=== PATIENT | female | born 1965 | race Caucasian/White ===

== ENCOUNTER 2017-05-25 14:30 | Outpatient (CLI) | payer BC | END 2017-05-25 14:31 | disposition home or self-care (01) | LOC: BICRAD 14:30 | PROVIDERS: ATTEND Internal Medicine | DX: Z01.818 Encounter for other preprocedural examination (principal) | CPT/HCPCS: 71046 ==

== ENCOUNTER 2017-07-21 13:43 | Outpatient (CLI) | payer BC | END 2017-07-21 13:44 | disposition home or self-care (01) | LOC: BICMAMMO 13:43 | PROVIDERS: ATTEND Internal Medicine | DX: Z12.31 Encounter for screening mammogram for malignant neoplasm of breast (principal) | CPT/HCPCS: 77063; 77067 ==

== ENCOUNTER 2018-04-27 06:59 | Outpatient (CLI) | payer BC ==
--- NOTE | 2018-04-27 08:06 | ULT ---
RIGHT UPPER QUADRANT ULTRASOUND: Date: 04/27/18 HISTORY: Elevated LFTs. FINDINGS: The liver demonstrates increased echogenicity consistent with fatty infiltration. No focal mass or in trahepatic ductal dilatation is seen. No gallstones, gallbladder wall thickening, or pericholecystic fluid is seen. The common duct measures 7.0 mm in diameter. The pancreas and right kidney appear norm al. No free fluid is seen in Morison's pouch. IMPRESSION: 1. Fatty liver. 2. No evidence of cholelithiasis. POS: [facility]
== END 2018-04-27 07:00 | disposition home or self-care (01) ==
LOC: BICULT 06:59
PROVIDERS: ATTEND Internal Medicine
DX: R74.0 Nonspecific elevation of levels of transaminase and lactic acid dehydrogenase [LDH] (principal); K76.0 Fatty (change of) liver, not elsewhere classified
CPT/HCPCS: 76705

== ENCOUNTER 2018-07-25 13:26 | Outpatient (CLI) | payer BC ==
--- NOTE | 2018-07-25 14:18 | MMO ---
Bilateral MAMMO Bilat Screen [facility]. CLINICAL HISTORY: Patient is 52 years old and is seen for screening. The patient has no family history of breast cancer. The patient has no personal history of cancer. VIEWS: The views performed were: bilateral craniocaudal with tomosynthesis and bilateral mediolateral oblique with tomosynthesis. FILMS COMPARED: The present examination has been compared to prior imaging studies performed at [facility] on 07/25/2014, 01/25/2015, 07/26/2015, 02/28/2016 and 07/21/2017. MAMMOGRAM FINDINGS: There are scattered fibroglandular densities. There are no suspicious masses, suspicious calcifications, or new areas of architectural distortion. IMPRESSION: THERE IS NO MAMMOGRAPHIC EVIDENCE OF MALIGNANCY. A ROUTINE FOLLOW-UP MAMMOGRAM IN 1 YEAR IS RECOMMENDED. THE RESULTS OF THIS EXAM WERE SENT TO THE PATIENT. ACR BI-RADS Category 1 - Negative MAMMOGRAPHY NOTE: 1. A negative mammogram report should not delay a biopsy if a dominant of clinically suspicious mass is present. 2. Approximately 10% to 15% of breast cancers are not detected by mammography. 3. Adenosis and dense breasts may obscure an underlying neoplasm.
== END 2018-07-25 13:27 | disposition home or self-care (01) ==
LOC: BICMAMMO 13:26
PROVIDERS: ATTEND Internal Medicine
DX: Z12.31 Encounter for screening mammogram for malignant neoplasm of breast (principal)
CPT/HCPCS: 77063; 77067

== ENCOUNTER 2019-10-06 13:15 | Outpatient (CLI) | payer OTHER ==
--- NOTE | 2019-10-06 14:05 | MMO ---
Bilateral MAMMO Bilat Screen [facility]. CLINICAL HISTORY: Patient is 53 years old and is seen for screening. The patient has no family history of breast cancer. The patient has no personal history of cancer. VIEWS: The views performed were: bilateral craniocaudal with tomosynthesis and bilateral mediolateral oblique with tomosynthesis. FILMS COMPARED: The present examination has been compared to prior imaging studies performed at [facility] on 07/26/2015, 02/28/2016, 07/21/2017 and 07/25/2018. This study has been interpreted with the assistance of computer-aided detection. MAMMOGRAM FINDINGS: There are scattered fibroglandular densities. There are no suspicious masses, suspicious calcifications, or new areas of architectural distortion. IMPRESSION: THERE IS NO MAMMOGRAPHIC EVIDENCE OF MALIGNANCY. A ROUTINE FOLLOW-UP MAMMOGRAM IN 1 YEAR IS RECOMMENDED. THE RESULTS OF THIS EXAM WERE SENT TO THE PATIENT. ACR BI-RADS Category 1 - Negative MAMMOGRAPHY NOTE: 1. A negative mammogram report should not delay a biopsy if a dominant of clinically suspicious mass is present. 2. Approximately 10% to 15% of breast cancers are not detected by mammography. 3. Adenosis and dense breasts may obscure an underlying neoplasm. Reported by: JOHNNA DONOHUE MD Electonically Signed: [id number]
== END 2019-10-06 13:16 | disposition home or self-care (01) ==
LOC: BICMAMMO 13:15
PROVIDERS: ATTEND Internal Medicine
DX: Z12.31 Encounter for screening mammogram for malignant neoplasm of breast (principal)
CPT/HCPCS: 77063; 77067

== ENCOUNTER 2020-06-01 10:31 | Inpatient (IN) | payer OTHER ==
[2020-06-01] MEDS ORDERED: Piperacillin/Tazobactam 3.375 GM VIAL ONE (11:04)
[2020-06-01 11:08] LABS: #Basophils 0.1 thou/uL (0.0-0.2); #Eosinphils 0.2 thou/uL (0.0-0.7); #Lymphocytes 2.8 thou/uL (1.20-3.40); #Monocytes 0.6 thou/uL (0.11-0.59); #Neutrophils 7.4 thou/uL (1.40-6.50); %Basophils 0.6 % (0.0-1.0); %Eosinophils 2.1 % (0.0-10.0); %Lymphocytes 25.1 % (21.0-51.0); %Monocytes 5.2 % (0.0-10.0); %Neutrophils 66.9 % (42.0-75.0); Hemoglobin 14.3 g/dL (12.0-16.0); Mean Corpuscular HGB CONC 33.8 g/dL (32.0-36.0); Mean Corpuscular Hemoglobin 33.1 pg (27.0-31.0); Mean Corpuscular Volume 97.8 fL (78.0-98.0); Platelet Count 393 thou/uL (130-400); RBC Distribution Width 12.1 % (11.5-14.5); Red Blood Cell (RBC) Count 4.33 mill/uL (4.20-5.40)
[2020-06-01 11:30] LABS: ALT (SGPT) 23 U/L (8-55); AST (SGOT) 16 U/L (5-34); Albumin 4.2 g/dL (3.5-5.0); Alkaline Phosphatase 56 U/L (40-110); Anion Gap 15 mmol/L (10-20); BUN (Urea Nitrogen) 14 mg/dL (9.8-20.1); Bilirubin, Total 0.2 mg/dL (0.2-1.2); Calc. Creatinine Clearance 0 mL/min (70-130); Calcium 9.6 mg/dL (7.8-10.44); Carbon Dioxide 22 mmol/L (22-29); Chloride 105 mmol/L (98-107); Globulin 4.1 g/dL (2.4-3.5); Glucose 176 mg/dL (70-105); Potassium 4.4 mmol/L (3.5-5.1); Protein, Total 8.3 g/dL (6.0-8.3); Sodium 138 mmol/L (136-145)
[2020-06-01] MEDS ORDERED: VANCOMYCIN 2 GRAM/400 ML BAG 2 GM in Premix Bag 1 BAG IVPB SCH (12:45)
[2020-06-01] MEDS ORDERED: Ondansetron PF 4 MG/2 ML Vial ONE (13:03)
[2020-06-01] MEDS ORDERED: Dextrose 50% Abboject 50 ML SYRINGE SLOW IVP PRN (13:34)
[2020-06-01] MEDS ORDERED: Ondansetron PF 4 MG/2 ML Vial IVP PRN (13:34)
[2020-06-01] MEDS ORDERED: Dextrose 5% in Water 1,000 ML IV PRN (13:34)
[2020-06-01] MEDS ORDERED: HumaLOG 300 UNITS/3 ML VIAL SC PRN ×2 (13:34)
[2020-06-01] MEDS ORDERED: Ondansetron ODT 4 MG TAB PO PRN (13:34)
[2020-06-01] MEDS ORDERED: hydrALAZINE 20 MG/ML VIAL SLOW IVP PRN (13:34)
[2020-06-01] MEDS: Sodium Chloride 0.9% 1,000 ML IV SCH ×2 (14:50→22:09)
[2020-06-01] MEDS: Nicotine 14 MG PATCH TD SCH (15:08)
[2020-06-01] MEDS: Piperacillin/Tazobactam 3.375 GM in Sodium Chloride 0.9% 100 ML IVPB SCH ×2 (16:11→22:10)
[2020-06-01] MEDS: Famotidine 20 MG TAB PO SCH (19:54)
[2020-06-02] MEDS: Vancomycin 1 GM in Premix Bag 1 BAG IVPB SCH ×2 (00:07→12:32)
[2020-06-02 01:41] LABS: SARS-CoV-2 PCR by NAA Not Detected (NotDetected)
[2020-06-02] MEDS: Piperacillin/Tazobactam 3.375 GM in Sodium Chloride 0.9% 100 ML IVPB SCH ×4 (05:10→23:25)
[2020-06-02] MEDS: Acetaminophen 325 MG TAB PO PRN ×2 (05:22→20:34)
[2020-06-02] MEDS: Sodium Chloride 0.9% 1,000 ML IV SCH ×5 (05:33→23:36)
[2020-06-02 06:57] LABS: #Basophils 0.1 thou/uL (0.0-0.2); #Eosinphils 0.3 thou/uL (0.0-0.7); #Lymphocytes 4.1 thou/uL (1.20-3.40); #Monocytes 0.6 thou/uL (0.11-0.59); #Neutrophils 5.5 thou/uL (1.40-6.50); %Basophils 1.2 % (0.0-1.0); %Eosinophils 3.1 % (0.0-10.0); %Neutrophils 51.8 % (42.0-75.0); Hemoglobin 12.2 g/dL (12.0-16.0); Mean Corpuscular HGB CONC 33.5 g/dL (32.0-36.0); Mean Corpuscular Hemoglobin 32.8 pg (27.0-31.0); Mean Platelet Volume 7.3 fL (7.4-10.4); Platelet Count 371 thou/uL (130-400); Red Blood Cell (RBC) Count 3.73 mill/uL (4.20-5.40); White Blood Cell (WBC) Count 10.7 thou/uL (4.8-10.8)
[2020-06-02] MEDS: Aspirin 81 mg Enteric Coated Tablet PO SCH (08:16)
[2020-06-02] MEDS: Famotidine 20 MG TAB PO SCH ×2 (08:17→20:34)
[2020-06-02] MEDS: Calcium Carbonate 600 MG + Vit D TAB PO SCH (08:17)
[2020-06-02] MEDS: Alogliptin 25 MG TAB PO SCH (08:17)
[2020-06-02] MEDS: Escitalopram Oxalate 10 mg Tablet PO SCH (08:17)
[2020-06-02] MEDS: Gabapentin 300 MG CAP PO SCH ×2 (08:18→20:34)
[2020-06-02] MEDS: Enoxaparin Sodium 40 MG/0.4 ML SYRINGE SC SCH (08:18)
[2020-06-02] MEDS: metFORMIN 500 MG TAB PO SCH ×2 (08:18→16:56)
[2020-06-02] MEDS: Saccharomyces boulardii 250 MG CAP PO SCH (08:18)
[2020-06-02 08:43] VITALS: BMI 29.4
[2020-06-02] MEDS: Nicotine 14 MG PATCH TD SCH (14:51)
[2020-06-02] MEDS: Atorvastatin Calcium 40 MG TAB PO SCH (20:34)
[2020-06-02] MEDS: Zolpidem Tartrate 5 MG TAB PO PRN (23:27)
[2020-06-03 01:26] LABS: Vancomycin, Trough 8.4 ug/mL
[2020-06-03] MEDS: Vancomycin 1 GM in Premix Bag 1 BAG IVPB SCH (01:49)
[2020-06-03] MEDS: VANCOMYCIN 1.25 GM/250 ML BAG 1.25 GM in Premix Bag 1 BAG IVPB SCH ×2 (01:51→14:29)
[2020-06-03] MEDS: Piperacillin/Tazobactam 3.375 GM in Sodium Chloride 0.9% 100 ML IVPB SCH ×4 (05:47→23:15)
[2020-06-03 06:15] LABS: #Basophils 0.1 thou/uL (0.0-0.2); #Eosinphils 0.3 thou/uL (0.0-0.7); #Lymphocytes 3.6 thou/uL (1.20-3.40); #Monocytes 0.6 thou/uL (0.11-0.59); #Neutrophils 4.3 thou/uL (1.40-6.50); %Eosinophils 3.4 % (0.0-10.0); %Lymphocytes 40.4 % (21.0-51.0); %Neutrophils 48.2 % (42.0-75.0); Hemoglobin 11.8 g/dL (12.0-16.0); Mean Corpuscular HGB CONC 34.4 g/dL (32.0-36.0); Mean Corpuscular Hemoglobin 33.9 pg (27.0-31.0); Mean Corpuscular Volume 98.5 fL (78.0-98.0); Platelet Count 350 thou/uL (130-400); RBC Distribution Width 11.7 % (11.5-14.5); White Blood Cell (WBC) Count 8.9 thou/uL (4.8-10.8)
[2020-06-03 06:28] LABS: Anion Gap 12 mmol/L (10-20); BUN (Urea Nitrogen) 13 mg/dL (9.8-20.1); Calc. Creatinine Clearance 151 mL/min (70-130); Calcium 8.5 mg/dL (7.8-10.44); Carbon Dioxide 22 mmol/L (22-29); Chloride 108 mmol/L (98-107); Glucose 101 mg/dL (70-105); Potassium 4.1 mmol/L (3.5-5.1); Sodium 138 mmol/L (136-145)
[2020-06-03] MEDS: metFORMIN 500 MG TAB PO SCH ×2 (08:09→16:44)
[2020-06-03] MEDS: Saccharomyces boulardii 250 MG CAP PO SCH (08:10)
[2020-06-03] MEDS: Gabapentin 300 MG CAP PO SCH ×2 (08:10→21:22)
[2020-06-03] MEDS: Escitalopram Oxalate 10 mg Tablet PO SCH (08:10)
[2020-06-03] MEDS: Calcium Carbonate 600 MG + Vit D TAB PO SCH (08:10)
[2020-06-03] MEDS: Alogliptin 25 MG TAB PO SCH (08:10)
[2020-06-03] MEDS: Aspirin 81 mg Enteric Coated Tablet PO SCH (08:10)
[2020-06-03] MEDS: Famotidine 20 MG TAB PO SCH ×2 (08:10→21:22)
[2020-06-03] MEDS: Enoxaparin Sodium 40 MG/0.4 ML SYRINGE SC SCH (08:11)
[2020-06-03] MEDS ORDERED: Saccharomyces boulardii 250 MG CAP PO SCH (09:00)
[2020-06-03] MEDS ORDERED: Magnevist 469MG/ML 20 ML VIAL ONE (13:33)
[2020-06-03] MEDS: Nicotine 14 MG PATCH TD SCH (14:31)
[2020-06-03] MEDS ORDERED: Sodium Chloride 0.9% 1,000 ML IV SCH (19:45)
[2020-06-03] MEDS: Atorvastatin Calcium 40 MG TAB PO SCH (21:22)
[2020-06-03] MEDS: Zolpidem Tartrate 5 MG TAB PO PRN (23:19)
[2020-06-04] MEDS: VANCOMYCIN 1.25 GM/250 ML BAG 1.25 GM in Premix Bag 1 BAG IVPB SCH ×2 (02:32→14:58)
[2020-06-04] MEDS: Piperacillin/Tazobactam 3.375 GM in Sodium Chloride 0.9% 100 ML IVPB SCH ×2 (05:42→10:49)
[2020-06-04 07:30] VITALS: BP 142/72; TEMP 97.9
[2020-06-04] MEDS: Aspirin 81 mg Enteric Coated Tablet PO SCH (08:57)
[2020-06-04] MEDS: Famotidine 20 MG TAB PO SCH (08:57)
[2020-06-04] MEDS: metFORMIN 500 MG TAB PO SCH (08:57)
[2020-06-04] MEDS: Enoxaparin Sodium 40 MG/0.4 ML SYRINGE SC SCH (08:57)
[2020-06-04] MEDS: Alogliptin 25 MG TAB PO SCH (08:58)
[2020-06-04] MEDS: Escitalopram Oxalate 10 mg Tablet PO SCH (08:58)
[2020-06-04] MEDS: Saccharomyces boulardii 250 MG CAP PO SCH (08:58)
[2020-06-04] MEDS: Calcium Carbonate 600 MG + Vit D TAB PO SCH (08:58)
[2020-06-04] MEDS: Gabapentin 300 MG CAP PO SCH (08:58)
[2020-06-04 14:10] LABS: Vancomycin, Trough 10.7 ug/mL
[2020-06-04] MEDS: Nicotine 14 MG PATCH TD SCH (14:54)
[2020-06-04] MEDS ORDERED: VANCOMYCIN 1.75 GM/350 ML BAG 1.75 GM in Premix Bag 1 BAG IVPB SCH (15:00)
== END 2020-06-04 16:36 | disposition home or self-care (01) | DRG 872 ==
LOC: ERS 10:31 → T4-A 12:27 → OBSVTOIN 06-02 08:00
PROVIDERS: ADMIT Family Medicine; ATTEND Internal Medicine
DX: A41.02 Sepsis due to Methicillin resistant Staphylococcus aureus (principal); L03.116 Cellulitis of left lower limb; E87.2 Acidosis; E11.621 Type 2 diabetes mellitus with foot ulcer; L97.529 Non-pressure chronic ulcer of other part of left foot with unspecified severity; I10 Essential (primary) hypertension; E78.5 Hyperlipidemia, unspecified; F17.210 Nicotine dependence, cigarettes, uncomplicated; I87.2 Venous insufficiency (chronic) (peripheral); E11.40 Type 2 diabetes mellitus with diabetic neuropathy, unspecified; E11.628 Type 2 diabetes mellitus with other skin complications; A41.52 Sepsis due to Pseudomonas; Z98.51 Tubal ligation status; Z82.0 Family history of epilepsy and other diseases of the nervous system; Z82.49 Family history of ischemic heart disease and other diseases of the circulatory system; Z79.899 Other long term (current) drug therapy; Z79.84 Long term (current) use of oral hypoglycemic drugs; Z79.82 Long term (current) use of aspirin
CPT/HCPCS: 36415; 36416; 80048; 80053; 80202; 83036; 83605; 85007; 85025; 85027; 87040; 87070; 87077; 87186; 87205; 87635; 93005; 96365; 96366; 96375; 96376; A9579; G0378; J1650; J2405; J2543; J3370; J3490; U0003; U0005

== ENCOUNTER 2020-08-06 14:12 | Outpatient (CLI) | payer OTHER | END 2020-08-06 14:13 | disposition home or self-care (01) | LOC: BICRAD 14:12 | PROVIDERS: ATTEND Internal Medicine | DX: M25.551 Pain in right hip (principal); M25.552 Pain in left hip; M16.0 Bilateral primary osteoarthritis of hip ==

== ENCOUNTER 2021-01-30 10:03 | Outpatient (CLI) | payer OTHER ==
[2021-01-30 11:32] LABS: #Basophils 0.1 10x3/uL (0.0-0.2); #Eosinphils 0.3 10x3/uL (0.0-0.5); #Monocytes 0.7 10x3/uL (0.0-1.1); #Neutrophils 6.9 10x3/uL (1.5-8.4); %Basophils 0.4 % (0.0-2.0); %Eosinophils 2.2 % (0.0-6.0); %Lymphocytes 28.8 % (18.0-47.0); %Monocytes 6.1 % (0.0-10.0); %Neutrophils 62.1 % (40.0-75.0); Mean Corpuscular HGB CONC 33.7 g/dL (32.0-36.0); Mean Corpuscular Hemoglobin 32.4 pg (27.0-33.0); Mean Corpuscular Volume 96.1 fl (81.6-98.3); Mean Platelet Volume 9.9 fl (7.4-10.4); Platelet Count 312 10x3/uL (150-450); RBC Distribution Width 12.8 % (11.5-14.5); Red Blood Cell (RBC) Count 4.32 10x6/uL (3.90-5.03); White Blood Cell (WBC) Count 11.1 10x3/uL (3.5-10.5)
[2021-01-30 11:45] LABS: Prothrombin Time 10.6 sec (9.5-12.1)
[2021-01-30 11:57] LABS: Bilirubin Neg (Negative); Blood, Urine Negative (Negative); Clarity Clear (Clear); Glucose, Urine (Dipstick) Normal (Negative); Ketone, Urine Negative (Negative); Leukocyte Negative (Negative); Nitrite Negative (Negative); Protein, Urine (Dipstick) Negative (Neg-Trace); Urobilinogen Normal mg/dL (Less than 2)
[2021-01-30 11:59] LABS: Anion Gap 15 mmol/L (10-20); BUN (Urea Nitrogen) 14 mg/dL (9.8-20.1); Calc. Creatinine Clearance 0 mL/min (70-130); Calcium 9.3 mg/dL (7.8-10.44); Carbon Dioxide 24 mmol/L (22-29); Chloride 107 mmol/L (98-107); Glucose 137 mg/dL (70-105); Potassium 4.6 mmol/L (3.5-5.1); Sodium 141 mmol/L (136-145)
[2021-01-31 11:54] LABS: SARS-CoV-2 PCR by NAA Not Detected (NotDetected)
== END 2021-01-30 10:04 | disposition home or self-care (01) ==
LOC: LABBT 10:03
PROVIDERS: ATTEND Orthopaedic Surgery
DX: Z01.818 Encounter for other preprocedural examination (principal); M16.11 Unilateral primary osteoarthritis, right hip; Z20.822 Contact with and (suspected) exposure to COVID-19
CPT/HCPCS: 80048; 81003; 82947; 85025; 85610; 87081; 93005; 93010; U0003; U0005

== ENCOUNTER 2021-02-04 06:28 | Day surgery (SDC) | payer OTHER ==
[2021-02-03 14:04] VITALS: BMI 28.4
[2021-02-04] MEDS ORDERED: Tranexamic Acid 1,000 MG/10 ML VIAL ONE ×2 (07:07→11:28)
[2021-02-04] MEDS ORDERED: ceFAZolin Sodium (SDC) 2 GM/100 ML BAG ONE (07:07)
[2021-02-04] MEDS ORDERED: Sodium Chloride 0.9% 100 ML ONE (07:07)
[2021-02-04] MEDS ORDERED: Vancomycin HCl 1.5 GM in Sodium Chloride 0.9% 250 ML 300 ML IVPB SCH (07:15)
[2021-02-04] MEDS ORDERED: Fentanyl 100 MCG/2 ML VIAL ONE ×2 (07:56→10:07)
[2021-02-04] MEDS ORDERED: Midazolam HCl 2 mg/2 ml Vial ONE ×2 (07:56→10:07)
[2021-02-04] MEDS ORDERED: Phenylephrine 10 MG/ML VIAL ONE (09:30)
[2021-02-04] MEDS ORDERED: Propofol 500 MG/50 ML VIAL ONE (09:30)
[2021-02-04] MEDS ORDERED: PROPOFOL 200 MG/20 ML VIAL ONE (09:40)
[2021-02-04] MEDS ORDERED: Bupivacaine HCl 0.5%/Epinephrine 1:200,000/PF 30 ml Vial ONE (09:40)
[2021-02-04] MEDS ORDERED: Bupivacaine PF 0.5% 30 ML VIAL ONE (10:22)
[2021-02-04] MEDS ORDERED: Ketorolac Tromethamine 30 MG/ML VIAL IVP SCH (14:15)
[2021-02-04] MEDS: Acetaminophen/Codeine 30-300mg Tablet PO PRN ×2 (14:44→17:43)
[2021-02-04 15:40] VITALS: BP 153/79; TEMP 98.3
[2021-02-04] MEDS ORDERED: metFORMIN 500 MG TAB PO SCH (17:00)
[2021-02-04] MEDS ORDERED: Gabapentin 300 MG CAP PO SCH (21:00)
[2021-02-05] MEDS ORDERED: Losartan 25 MG TAB PO SCH (09:00)
[2021-02-05] MEDS ORDERED: Alogliptin 25 MG TAB PO SCH (09:00)
[2021-02-05] MEDS ORDERED: FLU VACC QS2021-22(6MOS UP)/PF 60 MCG/0.5 ML SYRINGE IM ONE (09:00)
[2021-02-05] MEDS ORDERED: Loratadine 10 MG TAB PO SCH (09:00)
[2021-02-05] MEDS ORDERED: Aspirin 81 mg Enteric Coated Tablet PO SCH (09:00)
[2021-02-05] MEDS ORDERED: Atorvastatin Calcium 40 MG TAB PO SCH (09:00)
== END 2021-02-04 18:10 | disposition home or self-care (01) ==
LOC: SDC 06:28 → SURG B 12:15 → SDC 18:10
PROVIDERS: ATTEND Orthopaedic Surgery
PROC: 0SR904A Replacement of Right Hip Joint with Ceramic on Polyethylene Synthetic Substitute, Uncemented, Open Approach (ICD-10-PCS; principal; 2021-02-04)
PROC: 3E0T3BZ Introduction of Anesthetic Agent into Peripheral Nerves and Plexi, Percutaneous Approach (ICD-10-PCS; principal; 2021-02-04)
DX: M16.0 Bilateral primary osteoarthritis of hip (principal); F17.210 Nicotine dependence, cigarettes, uncomplicated; Q87.40 Marfan syndrome, unspecified; E11.9 Type 2 diabetes mellitus without complications; Z79.82 Long term (current) use of aspirin; Z79.84 Long term (current) use of oral hypoglycemic drugs; Z79.899 Other long term (current) drug therapy; Z88.8 Allergy status to other drugs, medicaments and biological substances
CPT/HCPCS: J0690; J1885; J2250; J2370; J2704; J3010; J3370; J3490; J7050; S0020

== ENCOUNTER 2021-05-06 09:58 | Outpatient (CLI) | payer OTHER | END 2021-05-06 09:59 | disposition home or self-care (01) | LOC: BICULT 09:58 | PROVIDERS: ATTEND Internal Medicine | DX: M25.561 Pain in right knee (principal); M25.562 Pain in left knee; M25.511 Pain in right shoulder; M25.512 Pain in left shoulder; R10.10 Upper abdominal pain, unspecified | CPT/HCPCS: 76705 ==

== ENCOUNTER 2022-12-23 11:45 | Outpatient (CLI) | payer OTHER | END 2022-12-23 11:46 | disposition home or self-care (01) | LOC: PET 11:45 | PROVIDERS: ATTEND Internal Medicine | DX: R91.1 Solitary pulmonary nodule (principal) | CPT/HCPCS: 78815; A9552 ==

== ENCOUNTER 2023-01-20 12:55 | Outpatient (CLI) | payer OTHER | END 2023-01-20 12:56 | disposition home or self-care (01) | LOC: BICMAMMO 12:55 | PROVIDERS: ATTEND Internal Medicine | DX: Z12.31 Encounter for screening mammogram for malignant neoplasm of breast (principal) | CPT/HCPCS: 77063; 77067 ==

== ENCOUNTER 2023-05-28 09:40 | Outpatient (CLI) | payer MEDICARE | END 2023-05-28 09:41 | disposition home or self-care (01) | LOC: RAD 09:40 | PROVIDERS: ATTEND Internal Medicine | DX: R91.1 Solitary pulmonary nodule (principal) | CPT/HCPCS: 71046 ==